=== PATIENT | male | born 1945 | race Caucasian/White ===

== ENCOUNTER 2018-03-31 19:12 | Observation (INO) | payer MEDICARE, BC ==
--- NOTE | 2018-03-31 19:32 | ED Physician Documentation ---
PD HPI FOCAL NEURO - Stated complaint Stated Complaint: STROKE SYMP - Chief complaint Chief Complaint: Neuro - History obtained from History obtained from: Patient, Family () - History of Present Illness Timing - onset: Today (At 1830 he started having difficulty speaking and enunciating. The feels it is already much better. He has a history of TIA or "recoverable stroke. Also bypass. No recent surgeries. He is on Plavix , aspirin, and a statin. No other anticoagulants.) - Additional information Additional information: Of note he fell about a week ago hitting his left chest wall and has persistent pain there. Also hit his head but does not have any injuries there and has a bruise on the left thigh but no difficulty walking. Review of Systems Ten Systems: 10 systems reviewed and negative Constitutional: denies: Fever, Chills Nose: denies: Rhinorrhea / runny nose, Congestion Cardiac: denies: Chest pain / pressure, Palpitations Respiratory: denies: Dyspnea, Cough GI: denies: Abdominal Pain, Nausea, Vomiting PD PAST MEDICAL HISTORY - Past Medical History Past Medical History: Yes Cardiovascular: Hypertension, High cholesterol, Coronary artery disease - Past Surgical History Past Surgical History: Yes Cardiovascular: CABG - Present Medications Home Medications: Ambulatory Orders Medication Instructions Recorded Confirmed Ascorbic Acid [Vitamin C] 03/31/18 Aspirin 03/31/18 Clopidogrel [Plavix] 75 mg PO ONCE 03/31/18 03/31/18 Docusate Sodium 03/31/18 Doxazosin Mesylate 8 mg PO 03/31/18 Esomeprazole Magnesium [Nexium] 03/31/18 Finasteride [Proscar] 03/31/18 Folic Acid 1 mg PO DAILY 03/31/18 03/31/18 Ipratropium [Atrovent] 03/31/18 Losartan Potassium 03/31/18 Metoprolol Succinate [Toprol Xl] 03/31/18 Multivitamin [Multivitamins] 03/31/18 Nitroglycerin 03/31/18 [place]-3 Fatty Acids/Fish Oil 03/31/18 [[place]-3 Fish Oil 1,000 mg Sfgl] Potassium Chloride 03/31/18 Psyllium Husk [Metamucil] 03/31/18 Simvastatin 40 mg PO 03/31/18 Triamcinolone 0.1% Cream [Kenalog 03/31/18 0.1% Cream] - Allergies Allergies/Adverse Reactions: Allergies Allergy/AdvReac Type Severity Reaction Status Date / Time No Known Drug Allergies Allergy Verified 03/31/18 20:21 - Living Situation Living Situation: reports: With spouse/s.o. - Social History Does the pt smoke?: No Does the pt drink ETOH?: Yes Does the pt have substance abuse?: No - Family History Family history: reports: Non contributory PD ED PE NORMAL - Vitals Vital signs reviewed: Yes - General General: Alert and oriented X 3, No acute distress, Well developed/nourished - HEENT HEENT: PERRL, EOMI - Neck Neck: Supple, no meningeal sign, No bony TTP - Cardiac Cardiac: RRR, No murmur - Respiratory Respiratory: No respiratory distress, Clear bilaterally - Abdomen Abdomen: Normal bowel sounds, Soft, Non tender - Extremities Extremities: No deformity, No tenderness to palpate - Neuro Neuro: Alert and oriented X 3, 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 Eye Opening: Spontaneous Motor: Obeys Commands Verbal: Oriented GCS Score: 15 - Psych Psych: Normal mood, Normal affect NIHSS - Time Time: 19:20 - Level of Consciousness Level of consciousness: (0) Alert, Keenly responsive LOC Questions: (1) Answers one Q correctly (Says it is February 2018) LOC Commands: (0) Performs both correctly - Gaze Best Gaze: (0) Normal - Visual Visual: (0) No loss - Facial Palsy Facial Palsy: (0) Normal, symmetrical movement - Motor Arms (both separate) Motor Arm (right): (0) No drift Motor Arm (left): (0) No drift - Motor Legs (both separate) Motor Leg (right): (0) No drift Motor Leg (left): (0) No drift - Limb Ataxia Limb Ataxia: (0) Absent - Sensory Sensory: (0) Normal - Best Language Best Language: (1) [id number] (some word finding diff, not much) - Dysarthria Dysarthria: (0) Normal - Extinction and Inattention (formally neg Extinction and inattention: (0) No abnormality - Total Score/Results Total Score/Result: 2 Results - Vitals Vitals: Vital Signs - 24 hr 03/31/18 03/31/18 19:18 20:05 Temperature 36.3 C L Heart Rate 78 70 Respiratory 22 21 Rate Blood Pressure 134/76 H 129/77 O2 Saturation 95 97 Oxygen O2 Source Room air - EKG (time done) 1952 Rate: Rate (enter#) (70) Rhythm: NSR [place]: Normal Intervals: Normal [place] QRS: Normal Ischemia: Normal ST segments Computer interpretation: Agree with computer - Labs Labs: Laboratory Tests 03/31/18 03/31/18 03/31/18 19:15 19:15 19:15 WBC 8.8 RBC 3.91 L Hgb 12.7 L Hct 36.4 L MCV 93.2 MCH 32.4 H MCHC 34.8 RDW 12.7 Plt Count 191 MPV 9.3 Neut # (Auto) 6.8 H Lymph # (Auto) 0.9 L [place] # (Auto) 1.0 Eos # (Auto) 0.1 Baso # (Auto) 0.0 Absolute Nucleated RBC 0.00 Nucleated RBC % 0.0 PT 11.6 INR 1.0 Sodium 135 Potassium 3.5 Chloride 96 L Carbon Dioxide 31 Anion Gap 8.0 BUN 38 H Creatinine 2.5 H Estimated GFR (MDRD) 25 L Glucose 124 H Calcium 9.2 Total Bilirubin 1.4 H AST 75 H ALT 32 Alkaline Phosphatase 90 Total Protein 7.4 Albumin 4.4 Globulin 3.0 Albumin/Globulin Ratio 1.5 Lipase 55 H - Rads (name of study) CT Head Radiology: EMP read contemporaneously (No acute disease and no intracranial hemorrhage. 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 Case discussed by phone after initial CT with Amanda Norris [facility] neurologist who recommended no TPA at this juncture but did recommend CT angiography of the head and neck. If no large vessel occlusion then can be admitted here for conservative care/carotid Dopplers. If he has a significant neurologic decline or there is a large vessel occlusion I will call them back. However his renal function came back and I do not think he would tolerate contrast well so this was canceled. He continued to have neurologic improvement. I discussed with the family has renal dysfunction, although I do not have any prior record of this they have no recollection of this being an issue in the past so I presume it is new. He is given IV fluids. Call to Dr. Covington for observation at 8:15 PM. - Sepsis Event Vital Signs: Vital Signs - 24 hr 03/31/18 03/31/18 19:18 20:05 Temperature 36.3 C L Heart Rate 78 70 Respiratory 22 21 Rate Blood Pressure 134/76 H 129/77 O2 Saturation 95 97 Oxygen O2 Source Room air Departure - Departure Disposition: ED Place in Observation Clinical Impression: TIA (transient ischemic attack), Renal insufficiency Left rib fracture Qualifiers: Encounter type: initial encounter Rib fracture type: multiple ribs Fracture type: closed Qualified Code(s): S22.42XA - Multiple fractures of ribs, left side , initial encounter for closed fracture Condition: Stable
[2018-03-31 19:37] LABS: BASOPHILS % (AUTO) 0.3 %; EOSINOPHILS # (AUTO) 0.1 10^3/uL (0.0-0.7); EOSINOPHILS % (AUTO) 0.6 %; HGB - HEMOGLOBIN 12.7 g/dL (14.0-18.0); LYMPHOCYTES # (AUTO) 0.9 10^3/uL (1.5-3.5); LYMPHOCYTES % (AUTO) 9.9 %; MEAN CORPUSCULAR HEMOGLOBIN 32.4 pg (27.0-31.0); MEAN CORPUSCULAR HGB CONC 34.8 g/dL (32.0-36.0); MEAN CORPUSCULAR VOLUME 93.2 fL (80.0-94.0); MEAN PLATELET VOLUME 9.3 fL (7.4-11.4); MONOCYTES % (AUTO) 11.6 %; NEUTROPHILS # (AUTO) 6.8 10^3/uL (1.5-6.6); NEUTROPHILS % (AUTO) 77.6 %; PLT - PLATELET COUNT 191 10^3/uL (130-450); RED BLOOD COUNT 3.91 10^6/uL (4.70-6.10); RED CELL DISTRIBUTION WIDTH 12.7 % (12.0-15.0); WHITE BLOOD COUNT 8.8 x10^3/uL (4.8-10.8)
[2018-03-31 19:44] LABS: PT - PROTHROMBIN TIME 11.6 secs (9.9-12.6)
[2018-03-31 19:52] LABS: ALBUMIN 4.4 g/dL (3.2-5.5); ALBUMIN/GLOBULIN RATIO 1.5 (1.0-2.2); BILIRUBIN,TOTAL 1.4 mg/dL (0.2-1.0); CALCIUM 9.2 mg/dL (8.5-10.3); CREATININE 2.5 mg/dL (0.6-1.2); TOTAL PROTEIN 7.4 g/dL (6.7-8.2)
--- NOTE | 2018-03-31 19:52 | CT Report ---
Reason: CVA sx Procedure Date: 03/31/2018 Accession Number: [id number] / [id number] Procedure: CT - Head W/O Stroke Protocol CPT Code: FULL RESULT: EXAM: CT HEAD EXAM DATE: 03/31/2018 07:45 PM. CLINICAL HISTORY: CVA sx. COMPARISON: None. TECHNIQUE: Multiaxial CT images were obtained from the foramen magnum to the vertex. Reformats: Sagittal and coronal. IV contrast: None. In accordance with CT protocol optimization, one or more of the following dose reduction techniques were utilized for this exam: automated exposure control, adjustment of mA and/or KV based on patient size, or use of iterative reconstructive technique. FINDINGS: Parenchyma: No evidence of acute territorial infarction or parenchymal hemorrhage. There chronic right basal ganglia and periventricular white matter lacunar infarcts. Extraaxial Spaces: Normal for age. Enlarged retrocerebellar CSF space most likely secondary to a prominent cisterna magna or arachnoid cyst. No evidence of acute extra-axial hemorrhage or space-occupying lesion. Ventricles: Normal in size and position. Sinuses and Orbits: Imaged paranasal sinuses, orbits, and mastoids show no significant abnormality. Bones: No evidence of fracture or calvarial defect. Other: None. IMPRESSION: 1. No acute intracranial abnormality. 2. Chronic right basal ganglia lacunar infarct. RADIA The above findings were discussed with Joseph Simon by Dr. Ben Kimble at 19:50 hrs on 03/31/18.
[2018-03-31] MEDS ORDERED: SODIUM CHLORIDE 0.9% 1,000 ML IV ONE (20:15)
[2018-03-31] MEDS ORDERED: SODIUM CHLORIDE FLUSH 0.9% 10 ML SYRINGE IVP PRN (20:32)
[2018-03-31] MEDS ORDERED: PROMETHAZINE 25 MG/1 ML VIAL IM PRN (20:32)
[2018-03-31] MEDS ORDERED: PROCHLORPERAZINE 10 MG/2 ML VIAL IVP PRN (20:32)
[2018-03-31] MEDS ORDERED: ONDANSETRON 4 MG/2 ML VIAL IVP PRN (20:32)
--- NOTE | 2018-03-31 20:55 | HISTORY & PHYSICAL EXAMINATION ---
Chief Complaint - Chief Complaint Chief Complaint: Expressive aphasia History of Present Illness - Admitted From Admitted From:: Emergency Department - History Obtained From Records Reviewed: Yes History obtained from: Patient and patients Exam Limitations: None - History of Present Illness HPI Comment/Other: Patient is a 72-year-old gentleman with a past medical history significant for coronary artery disease status post CABG 22 years ago and 2 coronary artery stents, history of TIA 15 years ago, hyperlipidemia, hypertension and BPH who presents to the emergency department with a chief complaint of expressive aphasia. According to the patient and his the patient has been under a significant amount of stress over the last few days dealing with some family issues. During this time according to the patient's the patient has been primarily staying in bed most of the day and has not been eating or drinking like he normally does. She states that he is very stressed and has taken this issue to heart. The patient states that he was likely depressed over the last few days due to ongoing stress. Him and his state that the issue has been dealt with as of earlier today and there is no longer any recent distress. The patient's states that when the patient woke up this morning he was stating that his water and Coca-Cola tasted funny. When asked the patient states that the had a sort of metallic taste of them this morning which is not normal for him. At that time the patient did not have any issues with his speech nor did he have any focal neurologic deficits. The patient's states that she prepare dinner this evening and then went for a walk around 6 PM. She states when she returned home at 630 she found that her had garbled speech. The patient states that he knew what he wanted to say but he could not get the words out. The patient's states that she did not notice any facial droop or any focal weakness at that time. She states that she gave him an aspirin and then decided to bring him here into the hospital. She states that he appeared to be pale at the time and just appeared ill but did not have any focal deficits. The patient and the patient's state that the symptoms completely resolved within about 20-25 minutes of when the first noticed the symptoms. The patient's states that the patient is now completely back to his normal speech and mentation. She also states that his color has returned to normal. The patient also states that he had a fall about a week ago. He states that he was walking around the bedroom in the dark as he needed to go to the bathroom. He states that he bumped into a bunk bed and fell onto his left side. He states that he did hit his head at that time and the left side of his chest against the ground. He states that he scraped his left knee. He states that when he tried to get up from the fall he fell once again. The patient did see his primary care physician after the fall and was noted to have a low blood pressure and told he was dehydrated at that time. The patient denies having had any headaches since the fall or having had any focal neurologic deficits until today. The patient does admit to a chronic cough and states that he has been having increasing pain in the left lower chest since his fall. He states that this pain is especially worse when he coughs. The patient otherwise denies any shortness of breath, fevers or chills. The patient denies any headaches, neck pain or neck stiffness. Patient denies any blurred vision, runny nose, sore throat, nasal congestion, difficulty swallowing, orthopnea, PND, increased lower extremity swelling, abdominal pain, nausea, vomiting, diarrhea, constipation, increased urinary frequency, urgency or dysuria. The patient denies any joint swelling, joint pain, back pain, neck stiffness, skin rashes, hair loss, polyuria, polydipsia, night sweats. The patient states that he has had weight loss and had difficulty gaining weight over the last several years. He states that he does have decreased appetite over the last week. On presentation to the emergency department the patient was afebrile and vital signs were within normal limits. Initially on presentation the emergency room physician noticed that the patient had some mild aphasia with some word finding difficulties and thought it was February 2018 instead of March 2018. Otherwise he did not note any focal neurologic deficits and found the patient's NIH stroke scale score to be 2. The emergency room physician did order a CT of the patient's head which showed no acute intracranial abnormality. The emergency room physician spoke with Dr. Amanda Norris from [facility] neurology who recommended no TPA at that juncture but did recommend a CT angiograph of the patient's head and neck. She stated if there was no large vessel occlusion then patient should be placed in observation and managed conservatively. The patient however was found to have poor renal function on routine lab work which revealed a creatinine of 2.5 with a BUN of 38. According to the patient and his he had no previous knowledge of any kind of kidney disease. The patient was given IV fluids and was placed in observation for neuro checks and further imaging. The patient did also undergo an x-ray of his chest given his recent fall and pain in the left side of his ribs. The patient's chest x-ray revealed that the patient has left lateral eighth and ninth rib fractures. History - Past Medical History Cardiovascular: reports: Hypertension, High cholesterol, Coronary artery disease Neuro: reports: TIA GI: reports: GERD : reports: Benign prostate hypertrophy Psych: reports: Depression, Anxiety Musculoskeletal: reports: Osteoarthritis Derm: reports: Other (Skin cancer) - Past Surgical History Cardiovascular: reports: CABG HEENT: reports: Cataracts - Family & Social History Family History: Mother: Alzheimer's Disease, Cancer (Patient's mother had colon cancer, sister had breast cancer and daughter had colon cancer), Father: CAD, Sister: Cancer, Other family: Cancer Living arrangement: At home Living Situation: With spouse/s.o. Social History Notes: The patient is originally from [place] but moved to [place] in his 20s. 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 The patient is currently to his second and they have been for 34 years. The patient has 2 biological children and 2 stepchildren with 4 grandchildren. The patient was living with his in [place] until 6 months ago when they moved up to [place], [place]. Here they are living on the same property as the patient's [id number]. The patient is a former smoker and smoked 1 pack a day but quit when he was 27 years old. He smoked for over 10 years. He does drink alcohol. He states he drinks about 2 drinks of Chester Silva every night. And occasionally he will also have some beer. He denies any illicit drug use. He denies ever having alcohol withdrawal. - POLST Patient has POLST: No POLST Status: Full Code Meds/Allgy - Home Medications Home Medications: Ambulatory Orders Medication Instructions Recorded Confirmed Ascorbic Acid [Vitamin C] 03/31/18 Aspirin 03/31/18 Clopidogrel [Plavix] 75 mg PO ONCE 03/31/18 03/31/18 Docusate Sodium 03/31/18 Doxazosin Mesylate 8 mg PO 03/31/18 Esomeprazole Magnesium [Nexium] 03/31/18 Finasteride [Proscar] 03/31/18 Folic Acid 1 mg PO DAILY 03/31/18 03/31/18 Ipratropium [Atrovent] 03/31/18 Losartan Potassium 03/31/18 Metoprolol Succinate [Toprol Xl] 03/31/18 Multivitamin [Multivitamins] 03/31/18 Nitroglycerin 03/31/18 Piedmont-3 Fatty Acids/Fish Oil 03/31/18 [Piedmont-3 Fish Oil 1,000 mg Sfgl] Potassium Chloride 03/31/18 Psyllium Husk [Metamucil] 03/31/18 Simvastatin 40 mg PO 03/31/18 Triamcinolone 0.1% Cream [Kenalog 03/31/18 0.1% Cream] - Allergies Allergies/Adverse Reactions: Allergies Allergy/AdvReac Type Severity Reaction Status Date / Time No Known Drug Allergies Allergy Verified 03/31/18 20:21 Review of Systems - Other Findings Other Findings: A comprehensive review of systems was performed the pertinent positives and negatives are stated above in the HPI and the remainder of the review of systems is negative. Exam - Vital Signs Reviewed Vital Signs: Yes Vital Signs: Vital Signs x48h Temp Pulse Resp BP Pulse Ox 03/31/18 20:05 70 21 129/77 97 03/31/18 19:18 36.3 C L 78 22 134/76 H 95 - Physical Exam General Appearance: positive: No acute distress, Alert, Other (Very thin appearing) Eyes Bilateral: positive: Normal inspection, PERRL ENT: positive: ENT inspection nml, Pharynx nml, Dry mucous membranes. negative : Purulent nasal drainage, Pharyngeal erythema, Oral lesions Neck: positive: Nml inspection, Thyroid nml, No JVD, Trachea midline. negative : Thyromegaly, Lymphadenopathy (R), Lymphadenopathy (L), Carotid bruit, Tracheal deviation Respiratory: positive: No respiratory distress, Breath sounds nml, Wheezes ( Left lower lobe of lung), Other (Chest wall tender to palpation around the eighth and ninth ribs) Cardiovascular: positive: Regular rate & rhythm, No murmur, No gallop Peripheral Pulses: positive: 2+ Abdomen: positive: Non-tender, No organomegaly, Nml bowel sounds, No distention. negative: Guarding, Rebound, Hepatomegaly Back: positive: Nml inspection. negative: CVA tenderness (R), CVA tenderness (L ) Skin: positive: Color nml, No rash, Warm, Dry. negative: Cyanosis, Diaphoresis Extremities: positive: Non-tender, Full ROM, Nml appearance, No pedal edema Neurologic/Psychiatric: positive: Oriented x3, CN's nml (2-12), Motor nml, Sensation nml, Mood/affect nml Conclusion/Plan - Problem List (1) Aphasia Conclusion/Plan: Patient has history of previous TIA, coronary artery disease, hypertension and hyperlipidemia who presented to the emergency department with expressive aphasia. Patient's symptoms lasted for 20-25 minutes but completely resolved. The patient's CT head was negative for any acute intracranial abnormality. The patient did have a fall 1 week ago where he did hit his head but did not have any concussive type symptoms following the fall. It appears that the fall was a mechanical fall. The patient has no other focal neurologic deficits. The patient's creatinine was elevated on presentation therefore we were unable to do a CT angiogram of his head and neck in the emergency department. Patient is being placed in observation for further workup. Patient's EKG was normal sinus rhythm. The patient had no other evidence of infection with a normal urine analysis and no infiltrates on chest x-ray. Plan: Aspirin Lipitor Plavux RA head and neck MRI brain Echo Lipid profile [facility] PT eval (2) LATANYA (acute kidney injury) Conclusion/Plan: Patient states he has no history of kidney disease in the past. On presentation the patient's creatinine is elevated at 2.5 with a BUN of 38. The patient does not have any previous creatinine in our system. The patient has had poor oral intake for the last several days and does appear to be dry on examination. It is possible that this is prerenal azotemia and the patient has acute kidney injury secondary to dehydration. The patient's urinalysis does show positive proteins and positive urine hyaline casts which are concerning for renal disease. At this point it is not completely clear that this is prerenal azotemia as the patient could have glomerular or tubular renal disease. The patient could also have obstructive renal disease as he does have history of BPH. We will get further workup while the patient is hospitalized. Plan: Renal ultrasound IV fluids give 2-3 L and monitor creatinine Avoid any nephrotoxic agents Urine sodium and urine creatinine to calculate FeNa If creatinine continues to be elevated or worsens patient will likely need a nephrology consultation (3) Multiple rib fractures Conclusion/Plan: Patient had a fall 1 week ago where he landed on the left side of his chest. The patient has been having significant pain in his left lower ribs with coughing since the fall. Chest x-ray done today shows that the patient has 2 rib fractures in the left lateral eighth and ninth ribs. Plan: Incentive spirometry Pain control with Tylenol, ibuprofen and oxycodone Acapella 3 times daily Duo nebs as needed Mucinex twice daily Qualifiers: Encounter type: initial encounter Fracture type: closed Laterality: left Qualified Code(s): S22.42XA - Multiple fractures of ribs, left side, initial encounter for closed fracture (4) Hypertension Conclusion/Plan: Patient's blood pressure is slightly elevated on presentation. Given that the patient has presented with possible TIA we will allow for permissive hypertension and hold all the patient's antihypertensive medications for now. We will monitor patient's blood pressure and treat for blood pressures above 180 systolic. Qualifiers: Hypertension type: essential hypertension Qualified Code(s): I10 - Essential (primary) hypertension (5) Hyperlipidemia Conclusion/Plan: The patient has a history of hyperlipidemia and is on a statin at home. We will check the patient's fasting lipid profile in the morning and adjust patient 's statin dose if needed. The patient will be placed on Lipitor 80 mg for now given his possible TIA. Qualifiers: Hyperlipidemia type: unspecified Qualified Code(s): E78.5 - Hyperlipidemia , unspecified (6) History of coronary artery disease Conclusion/Plan: Patient has a history of coronary artery disease status post CABG and 2 stents. The patient is on optimal medical treatment with aspirin, Plavix, simvastatin , Toprol XL and losartan. The patient recently saw his manufacturer's service representative and was doing fine at that time. While the patient is hospitalized here for possible TIA he will undergo an echocardiogram which we will follow up. The patient will also be monitored on telemetry. We will continue the patient on his home medication. The patient does not appear to be in atrial fibrillation on EKG. He is having chest pain with cough but this appears to be secondary to rib fracture he does not have any symptoms of acute angina or acute coronary syndrome. - Lab Results Lab results reviewed: Yes Fish Bones: 03/31/18 19:15 03/31/18 19:15 Other Lab Results: Laboratory Tests 03/31/18 03/31/18 03/31/18 19:15 19:15 19:15 WBC 8.8 RBC 3.91 L Hgb 12.7 L Hct 36.4 L MCV 93.2 MCH 32.4 H MCHC 34.8 RDW 12.7 Plt Count 191 MPV 9.3 Neut # (Auto) 6.8 H Lymph # (Auto) 0.9 L Haines # (Auto) 1.0 Eos # (Auto) 0.1 Baso # (Auto) 0.0 Absolute Nucleated RBC 0.00 Nucleated RBC % 0.0 PT 11.6 INR 1.0 Sodium 135 Potassium 3.5 Chloride 96 L Carbon Dioxide 31 Anion Gap 8.0 BUN 38 H Creatinine 2.5 H Estimated GFR (MDRD) 25 L Glucose 124 H Calcium 9.2 Total Bilirubin 1.4 H AST 75 H ALT 32 Alkaline Phosphatase 90 Total Protein 7.4 Albumin 4.4 Globulin 3.0 Albumin/Globulin Ratio 1.5 Lipase 55 H Laboratory Results WBC 8.8 x10^3/uL (4.8-10.8) 03/31/18 19:15 RBC 3.91 10^6/uL (4.70-6.10) L 03/31/18 19:15 Hgb 12.7 g/dL (14.0-18.0) L 03/31/18 19:15 Hct 36.4 % (42.0-52.0) L 03/31/18 19:15 MCV 93.2 fL (80.0-94.0) 03/31/18 19:15 MCH 32.4 pg (27.0-31.0) H 03/31/18 19:15 MCHC 34.8 g/dL (32.0-36.0) 03/31/18 19:15 RDW 12.7 % (12.0-15.0) 03/31/18 19:15 Plt Count 191 10^3/uL (130-450) 03/31/18 19:15 MPV 9.3 fL (7.4-11.4) 03/31/18 19:15 Neut # (Auto) 6.8 10^3/uL (1.5-6.6) H 03/31/18 19:15 Lymph # (Auto) 0.9 10^3/uL (1.5-3.5) L 03/31/18 19:15 Haines # (Auto) 1.0 10^3/uL (0.0-1.0) 03/31/18 19:15 Eos # (Auto) 0.1 10^3/uL (0.0-0.7) 03/31/18 19:15 Baso # (Auto) 0.0 10^3/uL (0.0-0.1) 03/31/18 19:15 Absolute Nucleated RBC 0.00 x10^3/uL 03/31/18 19:15 Nucleated RBC % 0.0 /100WBC 03/31/18 19:15 PT 11.6 secs (9.9-12.6) 03/31/18 19:15 INR 1.0 (0.8-1.2) 03/31/18 19:15 Sodium 135 mmol/L (135-145) 03/31/18 19:15 Potassium 3.5 mmol/L (3.5-5.0) 03/31/18 19:15 Chloride 96 mmol/L (101-111) L 03/31/18 19:15 Carbon Dioxide 31 mmol/L (21-32) 03/31/18 19:15 Anion Gap 8.0 (6-13) 03/31/18 19:15 BUN 38 mg/dL (6-20) H 03/31/18 19:15 Creatinine 2.5 mg/dL (0.6-1.2) H 03/31/18 19:15 Estimated GFR (MDRD) 25 (>89) L 03/31/18 19:15 Glucose 124 mg/dL (70-100) H 03/31/18 19:15 Calcium 9.2 mg/dL (8.5-10.3) 03/31/18 19:15 Total Bilirubin 1.4 mg/dL (0.2-1.0) H 03/31/18 19:15 AST 75 IU/L (10-42) H 03/31/18 19:15 ALT 32 IU/L (10-60) 03/31/18 19:15 Alkaline Phosphatase 90 IU/L (42-121) 03/31/18 19:15 Total Protein 7.4 g/dL (6.7-8.2) 03/31/18 19:15 Albumin 4.4 g/dL (3.2-5.5) 03/31/18 19:15 Globulin 3.0 g/dL (2.1-4.2) 03/31/18 19:15 Albumin/Globulin Ratio 1.5 (1.0-2.2) 03/31/18 19:15 Lipase 55 U/L (22-51) H 03/31/18 19:15 Urine Color YELLOW 03/31/18 22:51 Urine Clarity CLEAR (CLEAR) 03/31/18 22:51 Urine pH 5.5 PH (5.0-7.5) 03/31/18 22:51 Ur Specific [place] 1.025 (1.002-1.030) 03/31/18 22:51 Urine Protein 30 mg/dL (NEGATIVE) H 03/31/18 22:51 Urine Glucose (UA) NEGATIVE mg/dL (NEGATIVE) 03/31/18 22:51 Urine Ketones TRACE mg/dL (NEGATIVE) 03/31/18 22:51 Urine Occult Blood NEGATIVE (NEGATIVE) 03/31/18 22:51 Urine Nitrite NEGATIVE (NEGATIVE) 03/31/18 22:51 Urine Bilirubin NEGATIVE (NEGATIVE) 03/31/18 22:51 Urine Urobilinogen 0.2 (NORMAL) E.U./dL (NORMAL) 03/31/18 22:51 Ur Leukocyte Esterase NEGATIVE (NEGATIVE) 03/31/18 22:51 Ur Microscopic Review INDICATED 03/31/18 22:51 Urine Culture Comments Not Reportable 03/31/18 22:51 - Diagnostic Imaging Results Diagnostic Imaging Results: positive: Final report reviewed Diagnostic Imaging Results Comments: CT head Impression: 1. No acute intracranial abnormality. 2. Chronic right basal ganglia lacunar infarct. Chest x-ray Impression: Left lateral eighth and ninth rib fractures. - EKG Results EKG Interpreted Independently: Yes EKG Findings: NSR Core Measures - Anticipated LOS I expect patient to be DC'd or transferred within 96 hours.: Yes - DVT/VTE - Prophylaxis VTE/DVT Device ordered at admit?: Yes
[2018-03-31] MEDS ORDERED: CLOPIDOGREL 75 MG TABLET PO SCH (21:00)
[2018-03-31] MEDS ORDERED: ATORVASTATIN 40 MG TABLET PO SCH (21:00)
--- NOTE | 2018-03-31 21:37 | XRAY Report ---
Reason: Left chest wall Procedure Date: 03/31/2018 Accession Number: [id number] / [id number] Procedure: XR - Ribs w/PA Chest LT CPT Code: FULL RESULT: EXAM: LEFT RIB RADIOGRAPHY EXAM DATE: 03/31/2018 09:01 PM. CLINICAL HISTORY: Left chest wall. COMPARISON: None. TECHNIQUE: 1 view of the chest and 4 views of the ribs. FINDINGS: Bones: Mildly displaced left lateral eighth rib fracture. Nondisplaced left lateral ninth rib fracture. Lungs: No focal opacities. No pneumothorax. No pleural effusions. Mediastinum: Heart and mediastinal contours are unremarkable. Other: Median sternotomy wires. IMPRESSION: Left lateral eighth and ninth rib fractures. RADIA
[2018-03-31] MEDS: SODIUM CHLORIDE 0.9% 1,000 ML IV SCH (22:11)
[2018-03-31] MEDS: ACETAMINOPHEN 325 MG TABLET PO PRN (22:23)
[2018-03-31 23:10] LABS: GLUCOSE, URINE (UA) NEGATIVE (NEGATIVE); KETONES,URINE (UA) TRACE mg/dL (NEGATIVE); LEUKOCYTE ESTERASE, URINE NEGATIVE (NEGATIVE); NITRITE,URINE NEGATIVE (NEGATIVE); OCCULT BLOOD,URINE NEGATIVE (NEGATIVE); PH,URINE 5.5 PH (5.0-7.5); PROTEIN,URINE 30 mg/dL (NEGATIVE); UROBILINOGEN,URINE 0.2 (NORMAL) E.U./dL (NORMAL)
[2018-03-31 23:11] LABS: BILIRUBIN,URINE NEGATIVE (NEGATIVE); CLARITY,URINE CLEAR (CLEAR); ICTOTEST,URINE NEGATIVE
[2018-03-31] MEDS ORDERED: IPRATROPIUM/ALBUTEROL 3 ML NEB INH PRN (23:13)
[2018-03-31] MEDS ORDERED: oxyCODONE 5 MG TABLET PO PRN (23:14)
[2018-03-31] MEDS ORDERED: IBUPROFEN 400 MG TABLET PO PRN (23:14)
[2018-03-31 23:19] LABS: BACTERIA,URINE Rare /HPF (None Seen); CASTS, URINE 26-50 Hyaline Casts /LPF; RBC,URINE 0-5 /HPF (0-5); SQUAMOUS EPITHELIAL CELL,UR RARE Squamous (<= Few)
[2018-04-01 01:00] LABS: CREATININE,URINE 293.4 mg/dL; MICROALBUMIN,URINE 7.7 mg/dL (0-300.0); POTASSIUM,URINE 55.6 mmol/L
[2018-04-01] MEDS: SODIUM CHLORIDE FLUSH 0.9% 10 ML SYRINGE IVP SCH ×3 (01:31→16:34)
--- NOTE | 2018-04-01 02:16 | Ultrasound Report ---
Reason: Acute renal failure Procedure Date: 04/01/2018 Accession Number: [id number] / [id number] Procedure: US - Retroperitoneal CPT Code: FULL RESULT: EXAM: RENAL ULTRASOUND EXAM DATE: 04/01/2018 12:38 AM. CLINICAL HISTORY: Acute renal failure. COMPARISON: None. TECHNIQUE: Real-time scanning was performed with static images obtained. FINDINGS: Right Kidney: 10.5 x 4.7 x 4.7 cm. Echogenic cortex with no stones, contour-deforming masses, or hydronephrosis. Suboptimally seen due to body habitus. Left Kidney: 11.4 x 5.3 x 5.7 cm. Echogenic cortex with no stones, contour-deforming masses, or hydronephrosis. Suboptimally seen due to body habitus. Bladder: Right ureteral jet was seen in the bladder. Left jet poorly seen. The bladder volume was 114 cc. Other: Prostate measures 3.7 x 3.1 x 6.4 cm, 38 cc. IMPRESSION: 1. No hydronephrosis seen. 2. Kidneys appear somewhat echogenic bilaterally. 3. Right ureteral jet was seen in the bladder. Left jet poorly seen. RADIA
[2018-04-01] MEDS: ACETAMINOPHEN 325 MG TABLET PO PRN (02:21)
[2018-04-01 06:09] LABS: BASOPHILS % (AUTO) 0.4 %; EOSINOPHILS # (AUTO) 0.1 10^3/uL (0.0-0.7); EOSINOPHILS % (AUTO) 1.5 %; HGB - HEMOGLOBIN 11.7 g/dL (14.0-18.0); LYMPHOCYTES # (AUTO) 0.8 10^3/uL (1.5-3.5); LYMPHOCYTES % (AUTO) 14.6 %; MEAN CORPUSCULAR HEMOGLOBIN 31.8 pg (27.0-31.0); MEAN CORPUSCULAR HGB CONC 33.9 g/dL (32.0-36.0); MONOCYTES # (AUTO) 0.7 10^3/uL (0.0-1.0); NEUTROPHILS # (AUTO) 4.2 10^3/uL (1.5-6.6); NEUTROPHILS % (AUTO) 71.5 %; PLT - PLATELET COUNT 146 10^3/uL (130-450); RED BLOOD COUNT 3.68 10^6/uL (4.70-6.10); RED CELL DISTRIBUTION WIDTH 13.1 % (12.0-15.0); WHITE BLOOD COUNT 5.8 x10^3/uL (4.8-10.8)
[2018-04-01 06:20] LABS: PT - PROTHROMBIN TIME 11.7 secs (9.9-12.6)
[2018-04-01 06:23] LABS: ALBUMIN 3.7 g/dL (3.2-5.5); ALBUMIN/GLOBULIN RATIO 1.5 (1.0-2.2); ALKALINE PHOSPHATASE 77 IU/L (42-121); ALT ALANINE AMINOTRANSFERASE 28 IU/L (10-60); AST ASPARTATE AMINOTRANSFERASE 58 IU/L (10-42); BILIRUBIN,TOTAL 1.4 mg/dL (0.2-1.0); BUN - BLOOD UREA NITROGEN 32 mg/dL (6-20); CALCIUM 8.6 mg/dL (8.5-10.3); CARBON DIOXIDE - CO2 29 mmol/L (21-32); CHLORIDE 102 mmol/L (101-111); CHOL/HDL RATIO 2.2 (<5.0); CHOLESTEROL 121 mg/dL; CREATININE 1.7 mg/dL (0.6-1.2); GFR - MDRD 40 (>89); GLUCOSE 106 mg/dL (70-100); HDL CHOLESTEROL 55 mg/dL; LDL CHOLESTEROL,CALCULATED 52 mg/dL; LDL/HDL RATIO 0.9 (<3.6); SODIUM 137 mmol/L (135-145); TOTAL PROTEIN 6.2 g/dL (6.7-8.2); VLDL CHOLESTEROL 14 mg/dL
[2018-04-01 06:39] LABS: HB2 TOTAL 12.1 g/dL; HEMOGLOBIN A1C 0.41 g/dL; HEMOGLOBIN A1C % 5.3 % (4.6-6.2)
[2018-04-01] MEDS: SODIUM CHLORIDE 0.9% 1,000 ML IV SCH (08:55)
[2018-04-01] MEDS ORDERED: POLYETHYLENE GLYCOL 3350 17 GM PACKET PO SCH (09:00)
[2018-04-01] MEDS ORDERED: FAMOTIDINE 20 MG TABLET PO SCH (09:00)
[2018-04-01] MEDS ORDERED: guaiFENesin 600 MG TABLET PO SCH (09:00)
[2018-04-01] MEDS ORDERED: FOLIC ACID 1 MG TABLET PO SCH (09:00)
[2018-04-01 09:56] LABS: PSA SCREEN (Z12.5) 2.16 ng/mL (0.000-2.000)
[2018-04-01 10:00] LABS: CEA - CARCINOEMBRYONIC ANTIGEN 3.9 ng/mL
[2018-04-01 16:47] VITALS: BP 133/76
--- NOTE | 2018-04-01 19:18 | Discharge Plan ---
Discharge Plan Disposition: Home, Self Care Condition: Stable Prescriptions: oxyCODONE [Roxicodone] 5 mg PO Q4HR PRN #30 tablet PRN Reason: PAIN 7-10 Diet: Cardiac Activity Restrictions: Activity as Tolerated Shower Restrictions: No Driving Restrictions: No Assistance Devices: Walker Additional Instructions or Follow Up instructions: You are placed in observation into the hospital because of a short episode of being unable to find your words and speak. There was a concern that you could possibly be having a stroke. The initial CAT scan of your head is negative. The echocardiogram or ultrasound of your heart is also negative. Unfortunately, because of scheduling errors in the hospital, you were unable to do the MR angiograms of the head or the MRI of the head. You really want to go home would rather do those studies in the outpatient setting. As you are being discharged, we spent an hour and a half discussing the issues in your life. The first of which is your neurological deterioration. While this acute event of losing your ability to speak was today, you have had something going on for the last 5 years: weight loss, balance issues, memory issue. You have already had a complete neurological evaluation at the [facility] in [place] but that was 5 years ago. I would strongly recommend you return to that clinic via referral from Dr. Mary Christianson. A neurologist needs to reevaluate you for causes of balance, memory loss, and speech problems. The diagnosis for this can range from Parkinson's disease, alcohol abuse, Alzheimer's, or other neurological deteriorating condition. You need to be evaluated as soon as possible. Your has severe peripheral neuropathy and relies on you for help. I would strongly suggest you get a list from social service, senior service center, or [employer]. The list is of care providers you could start hiring to help you in your home. Please see Dr. Christianson in the next 1 week. She can then start the referral process for neurology at the polyclinic. No Smoking: If you smoke, Please STOP! Call for help. Follow-up with: Mary Christianson MD [Primary Care Provider] -
--- NOTE | 2018-04-01 19:48 | ADVANCE CARE PLANNING NOTE ---
Advance Care Planning - Date/Time Date: 04/01/18 Time: 19:41 - Purpose of encounter Text: what are his wishes in the face of a degenerative neurological condition - Parties in attendance Parties in attendance: , patient, and hospitalist - Decisional capacity Decisional capacity of: patient can be limited in that he has mild memory loss, and is very uncomfortable being asked questions - Subjective/Patient's story Subjective/Patient's story: He was born in [facility]. Left [place] moved to the [facility] when his parents moved. 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 He has been twice. With his current is been for 34 years. They spent most of their life in the [facility]. When they retired, and finances became an issue, they moved to [facility]. That lasted about 9 months. It was way more expensive than they realize, had limited access to healthcare, and they moved back to the [facility]. They did live in [facility] for a few months helping her daughter with a broken shoulder. But overall the felt they needed a financial break and moved to the [place] in September 2017. They are living in his 's sister's house. They are waiting for a cottage to be renovated on that property and will move into that cottage as soon as the renovation is done. His jqictn-vc-dat and nnpmrhi-df-qbt moved back into the home in late December or early January. They have been living in [place] and have finally finalized their jail plans and moved to the main house with Mr. Capellan and his . In their point of view, they have realized that Mr. Capellan and his have needed more help than they are willing to give. "My cdbouqy-li-vwe freaked out " because he feels that we are sicker than he realized. He does not want to end up taking care of Mr. Capellan. Mr. Capellan sympathies with his HUGO. His HUGO had to take care of his own parents and remembers the burden of taking care of not only them but also when his grandparents came to live with the HUGO. So the HUGO asked started making arrangements and asked them to not move into the cottage and to get to an assisted living facility. It started an entire conversation within the family. The patient is stressed out, not sleeping, not eating, and had an episode of expressive aphasia that brought him to the hospital for stroke workup. The HUGO has since calmed down and has apologized for his behavior and says Mr. Capellan and his can [place] [facility] Prior to this, however, the patient describes his own deterioration that has actually been going for about 5 years. He started having episodes of stumbling. Had a 20 pound weight loss over 1 year. They vaguely recall a bunch of blood test, a CAT scanner, and possibly even an MRI scan [facility]is [facility]. They could never figure out what was wrong with him and he continued to deteriorate with weight loss, and stumbling and occasional falls. A recent fall resulted in rib fractures. When they moved to the [place] in September they established themselves with Dr. Christianson. Somehow, through lack of direct communication and request, they still have not been referred to neurology for his deterioration. They feel that in spite of their description of his weakness and weight loss, they are not being referred to appropriate specialty services. They are desperate. They are scared. They feel that the system is failing them. They are now so overwhelmed they do not know what steps to do. He still feels that there is time with a good life left for him. While he never wants to live to the point that he is a shell of himself and completely dependent on people for activities of daily living, he does want to live as long as possible. He describes a friend named "Amador" who they know. Amador had Parkinson's disease and they watched him suffer thru that disease, get less and less active and interactive, until he spent the last few months just sitting and staring and having to be fed and taken care of before he . Mr. Capellan states he never wants to end up like that. He used to love waterskiing but had to stop doing it when he can no longer ski from balance issues or manipulate a boat. That was when he turned 69. So he turned his activities to more sedentary, contemplative things. For instance he loves walking at the beach. He turns to his and tell me he loves and adores her, and that he loves spending time with her above all else. So last week, when the sun was out, it was a perfect day to go to the beach and stroll about with his . They both love to read and can read for hours at a time. He also enjoys his TV. As long as he can do things like that he wants to stay alive. - Objective/Medical story Objective/Medical Story: Patient is a 72-year-old gentleman with a past medical history significant for coronary artery disease status post CABG 22 years ago and 2 coronary artery stents, history of TIA 15 years ago, hyperlipidemia, hypertension and BPH who presents to the emergency department with a chief complaint of expressive aphasia. According to the patient and his the patient has been under a significant amount of stress over the last few days dealing with some family issues. During this time according to the patient's the patient has been primarily staying in bed most of the day and has not been eating or drinking like he normally does. She states that he is very stressed and has taken this issue to heart. The patient states that he was likely depressed over the last few days due to ongoing stress. Him and his state that the issue has been dealt with as of earlier today and there is no longer any recent distress. The patient's states that when the patient woke up this morning he was stating that his water and Coca-Cola tasted funny. When asked the patient states that the had a sort of metallic taste of them this morning which is not normal for him. At that time the patient did not have any issues with his speech nor did he have any focal neurologic deficits. The patient's states that she prepare dinner this evening and then went for a walk around 6 PM. She states when she returned home at 630 she found that her had garbled speech. The patient states that he knew what he wanted to say but he could not get the words out. The patient's states that she did not notice any facial droop or any focal weakness at that time. She states that she gave him an aspirin and then decided to bring him here into the hospital. She states that he appeared to be pale at the time and just appeared ill but did not have any focal deficits. The patient and the patient's state that the symptoms completely resolved within about 20-25 minutes of when the first noticed the symptoms. The patient's states that the patient is now completely back to his normal speech and mentation. She also states that his color has returned to normal. The patient also states that he had a fall about a week ago. He states that he was walking around the bedroom in the dark as he needed to go to the bathroom. He states that he bumped into a bunk bed and fell onto his left side. He states that he did hit his head at that time and the left side of his chest against the ground. He states that he scraped his left knee. He states that when he tried to get up from the fall he fell once again. The patient did see his primary care physician after the fall and was noted to have a low blood pressure and told he was dehydrated at that time. The patient denies having had any headaches since the fall or having had any focal neurologic deficits until today. The patient does admit to a chronic cough and states that he has been having increasing pain in the left lower chest since his fall. He states that this pain is especially worse when he coughs. The patient otherwise denies any shortness of breath, fevers or chills. The patient denies any headaches, neck pain or neck stiffness. On presentation to the emergency department the patient was afebrile and vital signs were within normal limits. Initially on presentation the emergency room physician noticed that the patient had some mild aphasia with some word finding difficulties and thought it was February 2018 instead of March 2018. Otherwise he did not note any focal neurologic deficits and found the patient's NIH stroke scale score to be 2. The emergency room physician did order a CT of the patient's head which showed no acute intracranial abnormality. The emergency room physician spoke with Dr. Amanda Norris from [facility] neurology who recommended no TPA at that juncture but did recommend a CT angiograph of the patient's head and neck. She stated if there was no large vessel occlusion then patient should be placed in observation and managed conservatively. The patient however was found to have poor renal function on routine lab work which revealed a creatinine of 2.5 with a BUN of 38. According to the patient and his he had no previous knowledge of any kind of kidney disease. The patient was given IV fluids and was placed in observation for neuro checks and further imaging. The patient did also undergo an x-ray of his chest given his recent fall and pain in the left side of his ribs. The patient's chest x-ray revealed that the patient has left lateral eighth and ninth rib fractures. The patient is originally from [place] but moved to [place] in his 20s. 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 The patient is currently to his second and they have been for 34 years. The patient has 2 biological children and 2 stepchildren with 4 grandchildren. The patient was living with his in [place] until 6 months ago when they moved up to [place], [place]. Here they are living on the same property as the patient's qfpprh-if-vku. The patient is a former smoker and smoked 1 pack a day but quit when he was 27 years old. He smoked for over 10 years. He does drink alcohol. He states he drinks about 2 drinks of [place] Silva every night. And occasionally he will also have some beer. He denies any illicit drug use. He denies ever having alcohol withdrawal. - Goals of Care Goals of care determinations: As already stated above, as long as he is still alert and oriented, can take slow walks at the beach, read a book, he wants to be kept alive. - Plan Plan: While he wants everything done if there is a treatable reversible problem, he does not want to be kept alive if he is immobile and can no longer get out of a chair, nor can he recognize his , nor can he read a book. As such he wants to change his status to DO NOT RESUSCITATE. He also admits that he has advanced care directive as well as a living will at home that he did not bring with him. His next step is to call Dr. Christianson's office and get referral for MRI head and MRA. Next is to set up appointment with a [facility] Neurologist to get to the bottom of why he's deteriorating. He and his will call [employer], look up [employer] to start finding private in home hires for things like cleaning the house, coming over to help he and his with chores, hygeine, and driving to MD appointments. Social Service is not available now but I will get their list of agencies and private in home hires and mail it to them in the morning. They will start the discussion about what he really wants in the next few months. How long to stay independent? What does he feel makes you dependant? At what point to you recognize that you need more and more help and that they may need to move to [place]? Or do they move in with their daughter in [place]? They both have 2 children but they don't really want to life where they live except for the daughter in [place]. They love her and she has asked them to move in with her but fear that she will tell them what to do. So I suggest they learn to share their fears with her and come up with ground rules that would allow them to be comfortable living with her. After they have made some decisions, I placed emphasis on their sharing of those decisions with the family: SANGEETHA ARIAS kids, Dr. Christianson. - Code Status Code Status: Do Not Attempt Resuscitation - Time Spent on Advance Care Planning Time spent on advance care plannin minutes
[2018-04-02] MEDS ORDERED: ASPIRIN CHEW 81 MG TABLET PO SCH (09:00)
--- NOTE | 2018-04-10 06:25 | DISCHARGE SUMMARY ---
Physician: Lashanda Souza MD DATE OF ADMISSION: 03/31/2018 DATE OF DISCHARGE: 04/01/2018 DISCHARGE DIAGNOSES 1. Transient ischemic attack with aphasia. 2. Acute kidney failure, unspecified. 3. Multiple rib fractures, unspecified side; initial encounter for closed fracture. 4. Essential hypertension. 5. Hyperlipidemia. 6. Personal history of coronary artery disease. 7. Elevated liver function studies. 8. History of alcohol abuse. 9. History of cerebellar ataxia. DISCHARGE MEDICATIONS 1. Aspirin 81 mg a day. 2. Plavix 75 mg a day. 3. Colace 100 mg a day. 4. Doxazosin 8 mg a day. 5. Nexium 40 mg a day. 6. Proscar 5 mg a day. 7. Folic acid 1 mg a day. 8. Ipratropium bromide 2 sprays each naris twice a day. 9. Losartan 100 mg daily. 10. Metoprolol XL 25 mg daily. 11. Multivitamin daily. 12. Nitroglycerin sublingual p.r.n. chest pain. 13. Potassium 10 mEq daily. 14. Simvastatin 40 mg daily. 15. Trazodone 50 mg daily. 16. Kenalog cream topically b.i.d. 17. Oxycodone 5 mg p.o. q.4 hours p.r.n. rib cage pain. 18. MiraLax 17 gram packet daily. PRINCIPAL PROCEDURES 1. 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 2. Rib films with chest x-ray showing median sternotomy wires, left lateral 8th and 9th rib fracture s; mildly displaced 8th, nondisplaced 9th. 3. Retroperitoneal ultrasound did not have hydronephrosis, kidneys echogenic bilaterally, right uret eral jet seen in the bladder and left was poorly seen. 4. Echocardiogram had ejection fraction of 65% to 70% with no regional wall motion abnormalities. S evere increase in left atrial volume index. Right ventricle normal size. Severe right atrial enlarg ement. Right ventricular systolic pressures at rest 30 mm. The patient is a 72-year-old male who lives in a cqjaeao-rq-kba's house temporarily. He and his have left [place], [place], and moved back to the [facility]. For cost reasons, they are moving i nto a cottage that the 's qzczrzj-lp-fmy has [place] on the [place]. [place] [facility] [place] the cabbcge-nk-eps until the [facility] is renovated. He has been under a lot of stress lately, because the vbwizin-ws-utg has changed his mind about them living there. This was very stressful to the patient and his . He has been depressed over the fact that he may not be able to live in [facility]. On the morning of admission, he had garbled speech, was able to understand what was bein g said to him, but could not respond back appropriately. He also had a fall a week ago. He was walk ing around the bedroom in the dark because he needed to go to the bathroom. He bumped into a bed and fell onto his left side. He did hit his head at that time and his left side of his chest against [facility] ground. When he tried to get up, he fell once again. He did see his primary care physician after the fall and noted to have a low blood pressure, and told he was dehydrated. He has not had a headac he, nor has he had any focal neurological deficits with this fall until today. He has a chronic carmelo y cough with increasing left-sided chest wall pain with the cough. HOSPITAL COURSE: He was identified as having a TIA. CT of the head was ordered and negative. He do es have the old basal infarct, which most likely has given him baseline cerebellar ataxia. MRI and M R angiogram were ordered. However, due to scheduling difficulties in the department, the patient was unable to have them during his stay. He was found to be dehydrated, with rib fractures, given oxyco done for pain medicine and some relief. During his stay, advanced care planning was implemented. It was also noted that he has been deteriorating for 5 years. He has been having falls and cerebellar ataxia for quite some time. There was a possible question of alcohol abuse. Please refer to advance d care planning note, which was quite detailed. His verbal apraxia dissipated within hours of being in the hospital. Normotensive, no arrhythmias on telemetry. Liver function studies were elevated and went back down with just observation. BUN star essie at 38, on discharge was 32. Creatinine was 2.5 and was 1.7 at discharge. PSA was mildly elevate d at 2.1. CEA was normal at 3.9. Those were done because of his chronic anemia of 11.7 grams of hem oglobin. Normal MCV. Echocardiogram was done as part of his TIA workup, and was as above. The patient is advised to follow up with seeing Neurology. He [facility] to see the [facility] 5 years ago, when he was first evaluated for his falling and his memory loss. I have advised him to make another appointment to see his [facility] and to get a definitive diagnosis. In the meantime, his adbdwsp-vd-mrr has called to apologize. They will end up going to that [facility]. In the next few months, he will then figure out if he can stay at the [facility] with private in-home hire or to move t o an assisted living facility. Discharged in stable condition with a temperature of 36.8, pulse 72, blood pressure 133/76, respirati ons 18. He is a tall, alert, but slack-faced, elderly gentleman. For instance, when his lifting to you, he stares at you with a dull gaze and mouth is hanging open. When you point out that he is star ing at you with an open mouth, he will go "I'm sorry," and then close his mouth. He does not realize he is doing it. He has cerebellar ataxia on exam. Lungs are clear. Regular rate and rhythm. Greater than 30 minutes was spent coordinating discharge. TD: 04/10/2018 00:00
== END 2018-04-01 19:50 | disposition home or self-care (01) ==
LOC: ED 19:12 → OBS 20:32
PROVIDERS: ADMIT Internal Medicine; ATTEND Specialist
DX: G45.9 Transient cerebral ischemic attack, unspecified (principal); N17.9 Acute kidney failure, unspecified; S22.42XA Multiple fractures of ribs, left side, initial encounter for closed fracture; I10 Essential (primary) hypertension; E78.5 Hyperlipidemia, unspecified; I25.10 Atherosclerotic heart disease of native coronary artery without angina pectoris; Z95.1 Presence of aortocoronary bypass graft; Z95.5 Presence of coronary angioplasty implant and graft; W18.09XA Striking against other object with subsequent fall, initial encounter; Z87.891 Personal history of nicotine dependence; Y92.013 Bedroom of single-family (private) house as the place of occurrence of the external cause; F10.11 Alcohol abuse, in remission; F43.8 Other reactions to severe stress; Z91.81 History of falling; E86.0 Dehydration; R27.0 Ataxia, unspecified; D64.9 Anemia, unspecified; R41.3 Other amnesia; R94.5 Abnormal results of liver function studies; K21.9 Gastro-esophageal reflux disease without esophagitis; R05 Cough
CPT/HCPCS: 36415; 70450; 71101; 76770; 80053; 80061; 81001; 82043; 82378; 82570; 83036; 83690; 84133; 84300; 85025; 85610; 93005; 93306; 96360; 96361; 97116; 97161; 99284; 99285; A9270; G0103; G0378; G8978; G8979; 81003; 82270; 83721; 84153; 87086